=== PATIENT | male | born 1990 | race Asian ===

== ENCOUNTER 2017-01-29 08:04 | Emergency (ER) | payer OTHER ==
[~2017-01-29] VITALS: Ht 117 cm; Wt 80.0 kg
[~2017-01-29 08:04] MED LIST: CEPHALEXIN500 M1 PO; MOTRIN 800800 MG/TAB PO; NORCO 325 MG-51 TAB PO
[2017-01-29 08:06] VITALS: BP 126/95; PULSE 105; TEMP 97.8
== END 2017-01-29 08:30 | disposition home or self-care (01) ==
LOC: COL.ER 08:04
DX: S61.211A Laceration without foreign body of left index finger without damage to nail, initial encounter (principal); W45.8XXA Other foreign body or object entering through skin, initial encounter